=== PATIENT | male | born 1930 | race Caucasian/White ===

== ENCOUNTER 2017-09-10 14:57 | Inpatient (IN) | payer MEDICARE, OTHER ==
[~2017-09-10] VITALS: Ht 167.6 cm; Wt 77.1 kg
[~2017-09-10 14:57] MED LIST: CARB-35 PO; CARBIDOPA-LEVODOPA PO; ERGO2000 PO; FOLI1TAB16 PO; LUPRON DEPOT; MIRT15TA7 PO; MULT1TAB69 PO; POLY17PO3 PO; RISE35TA8 PO; ROPI0.5T2 PO; ROPI1TAB4 PO; SOLI10TA2 PO; TRAM50TA2 PO; VITAMIN D2 PO
--- NOTE | 2017-09-10 15:30 | NUR ---
DR TOURE AT BEDSIDE FOR EVAL SALINE LOCK PLACED. SEPTIC WORKUP INITIATED. IV FLUIDS VIA LT HAND. BLOOD DRAWN FOR LAB WORK AND CUTURES. ANEDRS CATH INSERTED - URINE SPECIMEN OBTAINED.
--- NOTE | 2017-09-10 15:30 | NUR ---
ANTIBIOTICS INITIATED PER MD ORDERS.
[2017-09-10] MEDS ORDERED: FURO-152 PO (15:34)
[2017-09-10] MEDS ORDERED: BICA50TA2 PO (15:34)
[2017-09-10] MEDS ORDERED: ACET-53 PO (15:34)
[2017-09-10] MEDS ORDERED: MIRA50TA PO (15:34)
[2017-09-10] MEDS ORDERED: PRAM0.253 PO (15:34)
[2017-09-10] MEDS ORDERED: IV NORMAL SALINE 1000 ML BAG IV ONE (15:45)
[2017-09-10] MEDS ORDERED: VANCOMYCIN IV 1,000 MG in IV DEXTROSE 5% 250 ML IV ONE (15:45)
[2017-09-10] MEDS ORDERED: GENTAMICIN SULFATE INJ 80 MG in IV DEXTROSE 5% 100 ML IV ONE (15:45)
[2017-09-10] MEDS ORDERED: PIPERACILLIN SODIUM/TAZOBACTAM 3.375 G in IV DEXTROSE 5% 50 ML IV ONE (15:45)
[2017-09-10 16:08] LABS: BASOPHILS % (AUTO) 0.3 % (0.0-2.0); EOSINOPHILS % (AUTO) 0.1 % (0.0-7.0); HEMATOCRIT 36.5 % (36.7-47.1); HEMOGLOBIN 12.3 g/dL (12.5-16.3); LYMPHOCYTES # (AUTO) 0.2 K/uL (20.0-40.0); LYMPHOCYTES % (AUTO) 1.7 % (20.5-51.5); MEAN CORPUSCULAR HEMOGLOBIN 29.1 uug (23.8-33.4); MEAN CORPUSCULAR HGB CONC 34 g/dL (32.5-36.3); MEAN CORPUSCULAR VOLUME 86.5 fL (73.0-96.2); MONOCYTES # (AUTO) 0.3 K/uL (2.0-10.0); MONOCYTES % (AUTO) 3.7 % (0.0-11.0); NEUTROPHILS # (AUTO) 8.6 K/uL (1.8-8.9); NEUTROPHILS % (AUTO) 94.2 % (38.5-71.5); PLATELET COUNT (AUTO) 119 K/uL (152-348); RED BLOOD CELL COUNT(AUTO) 4.22 MIL/uL (4.06-5.63); WHITE BLOOD COUNT (AUTO) 9.1 K/uL (3.6-10.2)
[2017-09-10 16:15] LABS: CARBON DIOXIDE 25 mmol/L (21-32); CHLORIDE 104 mmol/L (98-107); CREATININE 1.2 mg/dL (0.6-1.3); GLUCOSE 147 mg/dL (74-106); POTASSIUM 3.8 mmol/L (3.5-5.1); UREA NITROGEN, BLOOD 29 mg/dL (7-18)
[2017-09-10 16:28] LABS: ALANINE AMINOTRANSFERASE 7 U/L (16-63); ALKALINE PHOSPHATASE 64 U/L (50-136); ASPARTATE AMINOTRANSFERASE 17 U/L (15-37); BILIRUBIN,DIRECT 0.1 mg/dL (0.0-0.2); BILIRUBIN,TOTAL 0.6 mg/dL (0.2-1.0); TOTAL PROTEIN, SERUM 7.3 g/dL (6.4-8.2)
[2017-09-10] MEDS ORDERED: GENTAMICIN SULFATE 80 MG/2 ML VIAL ONE (16:44)
[2017-09-10] MEDS ORDERED: PIPERACILLIN/TAZOBACTAM/D5W 50 ML IV ONE (16:44)
[2017-09-10] MEDS ORDERED: VANCOMYCIN IV 200 ML ONE (16:46)
[2017-09-10 16:59] LABS: *BILIRUBIN,URIN NEGATIVE (NEGATIVE); *BLOOD, URINE 1+ (NEGATIVE); *CLARITY,URINE SLIGHTLY CLOUDY (CLEAR); *KETONES,URINE NEGATIVE (NEGATIVE); *PROTEIN,URINE 1+ (NEGATIVE); *UROBILINOGEN,URINE 0.2 E.U./dl (NORMAL); LEUKOCYTE ESTERASE ,URINE NEGATIVE (NEGATIVE); NITRITE, URINE NEGATIVE (NEGATIVE); UGLUCOSE NEGATIVE (NEGATIVE)
[2017-09-10 17:16] LABS: *COLOR,URINE YELLOW (YELLOW)
[2017-09-10 17:18] LABS: URINE AMORPHOUS URATE MANY /HPF; WBC,URINE 0-3 /HPF (0-3)
[2017-09-10] MEDS ORDERED: ACETAMINOPHEN 325 MG TABLET PO ONE (18:45)
--- NOTE | 2017-09-10 19:00 | NUR ---
STILL AWAITINF FOR BED ASSIGNMENT FROM TELEMETRY FLOOR.
[2017-09-10] MEDS ORDERED: ACETAMINOPHEN ES 500 MG TABLET ONE (19:09)
--- NOTE | 2017-09-10 19:25 | NUR ---
Laura dominique in EDM - 09/10/17 at 1926 by PIYUSH ANTIBIOTICS INITIATED PER MD BLACKWELL.
--- NOTE | 2017-09-10 19:28 | NUR ---
REPORT GIVEN TO SAE MARISCAL.
--- NOTE | 2017-09-10 20:58 | NUR ---
Pt. admitted to TELE , under care of Dr. LOPEZ [place] List completed.
--- NOTE | 2017-09-10 21:22 | NUR ---
PEROT GIVEN TO MANSOOR ASH. PATIENT ASSIGNED TO ROOM 219
--- NOTE | 2017-09-10 21:56 | NUR ---
PATIENT IS BEING TRANSPORTED BY [facility].
--- NOTE | 2017-09-10 22:00 | NUR ---
RECEIVED PATIENT VIA GURNEY FROM ER. PATIENT IS A/O X3. FARSI SPEAKING. CAREGIVER AT BEDSIDE. PATIENT DENIES PAIN OR DISCOMFORT. NO RESP. DISTRESS NOTED. ON O2 2L NC SATING 98%. PLACED ON TELE ORDERED, SR 68. H/L NOTED TO BILATERAL HANDS, BOTH #20 GAUGE, INTACT AND PATENT. F/C INTACT AND PATENT, DRAINING CLEAR, YELLOW URINE. CALL LIGHT IN REACH. ALL NEEDS ATTENDED. ORIENTED PATIENT TO ROOM AND CALL LIGHT. CALL LIGHT IN REACH. ALL NEEDS ATTENDED. WILL CONTINUE TO MONITOR AND ASSESS.
--- NOTE | 2017-09-10 22:10 | NUR ---
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
--- NOTE | 2017-09-10 22:15 | NUR ---
PATIENTS TEMPERATURE CHECKED AXILLARY, 100.0 = 101.[address] LOPEZ FOR FURTHER ORDERS. ALL NEEDS ATTENDED.
[2017-09-10 22:26] VITALS: BP 115/45
[2017-09-10] MEDS ORDERED: ACETAMINOPHEN 325 MG TABLET ONE (22:53)
[2017-09-10] MEDS: ACETAMINOPHEN 325 MG TABLET PO PRN (22:59)
[2017-09-10] MEDS ORDERED: TRAMADOL HCL 50 MG TABLET PO PRN (23:00)
--- NOTE | 2017-09-10 23:00 | NUR ---
PATIENT GIVEN TYLENOL 650MG PO PRN FOR TEMP. WILL CONTINUE TO MONITOR.
[2017-09-11] VITALS: BP 113/40
--- NOTE | 2017-09-11 01:00 | NUR ---
AFEBRILE. PATIENTS TEMPERATURE 98.8.
[2017-09-11 04:00] VITALS: BP 107/35
[2017-09-11] MEDS ORDERED: Z GUARD REMEDY PASTE 57 GM TUBE TOP PRN ×2 (05:15→09:30)
--- NOTE | 2017-09-11 06:40 | NUR ---
PATIENT ASLEEP. AFEBRILE. VSS. 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 NO S/S OF PAIN OR DISCOMFORT. NO RESP. DISTRESS NOTED. BED ALARM ON. CALL LIGHT IN REACH. ALL NEEDS ATTENDED. WILL CONTINUE TO MONITOR.
--- NOTE | 2017-09-11 07:30 | NUR ---
Sleeping, comfortable. O2 at 2L/NC. Tele SR, BBB, PAC
[2017-09-11] MEDS: MIRALAX 17 GM POWD.PACK PO SCH (09:00)
--- NOTE | 2017-09-11 09:00 | NUR ---
Febrile 102. 3, cooling measures given. Tylenol po given. Dr. Pretty and Ileana Reis DOCUMENT SCANNER informed
[2017-09-11 09:03] VITALS: BP 116/33
[2017-09-11] MEDS: SOLIFENACIN SUCCINATE 5 MG TABEC PO SCH (10:05)
[2017-09-11] MEDS: FOLIC ACID 1 MG TABLET PO SCH (10:06)
[2017-09-11] MEDS: CARBIDOPA/LEVODOPA 25-100MG TAB.RAPDIS PO SCH ×4 (10:06→22:28)
[2017-09-11] MEDS: BICALUTAMIDE 50 MG TABLET PO SCH (10:08)
[2017-09-11] MEDS: ACETAMINOPHEN 325 MG TABLET PO PRN ×2 (10:09→22:27)
[2017-09-11] MEDS ORDERED: PIPERACILLIN/TAZOBACTAM/D5W 50 ML IV SCH (10:30)
[2017-09-11] MEDS: IV NS 1000 ML 1,000 ML IV PRN (11:28)
[2017-09-11] MEDS: PIPERACILLIN/TAZOBACTAM/D5W 50 ML IV SCH ×3 (11:28→17:39)
[2017-09-11 11:39] LABS: ALANINE AMINOTRANSFERASE 10 U/L (16-63); ALKALINE PHOSPHATASE 50 U/L (50-136); ASPARTATE AMINOTRANSFERASE 21 U/L (15-37); BILIRUBIN,TOTAL 0.4 mg/dL (0.2-1.0); CARBON DIOXIDE 25 mmol/L (21-32); CHLORIDE 109 mmol/L (98-107); CREATININE 1.3 mg/dL (0.6-1.3); GLUCOSE 115 mg/dL (74-106); POTASSIUM 3.7 mmol/L (3.5-5.1); TOTAL PROTEIN, SERUM 6.4 g/dL (6.4-8.2); UREA NITROGEN, BLOOD 31 mg/dL (7-18)
[2017-09-11 11:45] VITALS: BP 104/41
[2017-09-11 11:54] LABS: BASOPHILS % (AUTO) 0.2 % (0.0-2.0); EOSINOPHILS % (AUTO) 0.1 % (0.0-7.0); HEMATOCRIT 33.3 % (36.7-47.1); HEMOGLOBIN 10.8 g/dL (12.5-16.3); LYMPHOCYTES # (AUTO) 0.3 K/uL (20.0-40.0); LYMPHOCYTES % (AUTO) 4.2 % (20.5-51.5); MEAN CORPUSCULAR HEMOGLOBIN 28.4 uug (23.8-33.4); MEAN CORPUSCULAR HGB CONC 33 g/dL (32.5-36.3); MEAN CORPUSCULAR VOLUME 87.4 fL (73.0-96.2); MONOCYTES # (AUTO) 0.4 K/uL (2.0-10.0); MONOCYTES % (AUTO) 5.7 % (0.0-11.0); NEUTROPHILS # (AUTO) 5.9 K/uL (1.8-8.9); NEUTROPHILS % (AUTO) 89.8 % (38.5-71.5); RED BLOOD CELL COUNT(AUTO) 3.81 MIL/uL (4.06-5.63); WHITE BLOOD COUNT (AUTO) 6.6 K/uL (3.6-10.2)
--- NOTE | 2017-09-11 12:00 | NUR ---
IVF and Zosyn started as ordered, infusing
[2017-09-11 12:43] LABS: PLATELET COUNT (AUTO) 130 K/uL (152-348)
--- NOTE | 2017-09-11 13:00 | NUR ---
Flu A/B specimen followed up, not collected in ER. Collected and sent to lab
[2017-09-11] MEDS: OSELTAMIVIR PHOSPHATE 75 MG CAPSULE PO SCH ×2 (13:16→22:27)
--- NOTE | 2017-09-11 14:07 | NUR ---
PHARMACY CLINICAL NOTES: VANCOMYCIN DOSING S: 87 YO MALE WITH MULTIPLE MEDICAL PROBLEMS WAS ADMITTED DUE TO ELEVATED TEMP O: BUN/SCR 29/1.2 WBC 9.1, TEMP 102.1 A/P: PT received vancomycin 1000 mg x 1 on 09/10 @ 1911. Due to advanced age and compromised renal fxn will dose vanco by fall of the level. Will administer another dose of Vanco 1250 mg IVPB x 1 . Will order a level for tomorrow @ 1430 and administer/ adjust dose accordingly. RX will continue to follow.
[2017-09-11] MEDS ORDERED: VANCOMYCIN IV 1,250 MG in IV DEXTROSE 5% 500 ML IV ONE (15:00)
[2017-09-11 15:53] VITALS: BP 126/48
--- NOTE | 2017-09-11 18:06 | NUR ---
Diet changed to pureed with aspiration precaution. IVF infusing. Droplet precaution enforced.
--- NOTE | 2017-09-11 19:40 | NUR ---
PT RECEIVED IN BED, AWAKE. A/OX1. CONFUSED. SPEECH UNCLEAR. V/S STABLE. IN ACUTE DISTRESS. NO S/S OF PAIN AT THIS TIME. ON 2L NC, TOLERATING WELL. PT SEEN WITH FEVER 100.9F, COOLING MEASURES INITIATED. WILL ADMIN TYLENOL ORDERED. IVF INFUSING. ANDERS INTACT AND PATENT. HOB ELEVATED. DROPLET PRECAUTIONS IN PLACE. SAFETY MEASURES IMPLEMENTED. CALL LIGHT WITHIN REACH.
[2017-09-11 20:00] VITALS: BP 144/57
[2017-09-11] MEDS: ropiniROLE 1 MG TABLET PO SCH (22:27)
[2017-09-11] MEDS: MIRTAZAPINE 15 MG TABLET PO SCH (22:28)
[2017-09-12 04:00] VITALS: BP 157/54
[2017-09-12] MEDS: PANTOPRAZOLE SODIUM 40 MG TABLET.DR PO SCH (06:44)
--- NOTE | 2017-09-12 06:46 | NUR ---
NON-ADMIN PROTONIX . UNABLE TO CRUSH
--- NOTE | 2017-09-12 07:28 | NUR ---
END OF SHIFT NOTES. PT SLEPT INTERMITTENTLY THROUGHOUT SHIFT. IN STABLE CONDITION. IVF INFUSING. IV ABX INFUSED. ON 2L NC, TOLERATING WELL. PT REQUIRED DEEP SUCTIONING, SEEN WITH THICK YELLOW MUCUS. HEARD WITH BACK OF THE THROAT GURGLING. HOB ELEVATED FOR ASPIRATION PRECAUTIONS. ANDERS INTACT AND PATENT. ALL NEEDS ATTENDED. SAFETY MAINTAINED. CALL LIGHT WITHIN REACH.
--- NOTE | 2017-09-12 08:00 | NUR ---
AWAKE COOPERATE ORTX1 NO SOB OR PAIN ON FALL/ASPIRATION PRECAUTION BED ALARM ON AND CALL LIGHT IN REACH
[2017-09-12 08:06] LABS: ALKALINE PHOSPHATASE 46 U/L (50-136); ASPARTATE AMINOTRANSFERASE 27 U/L (15-37); BILIRUBIN,TOTAL 0.3 mg/dL (0.2-1.0); CARBON DIOXIDE 29 mmol/L (21-32); CHLORIDE 109 mmol/L (98-107); CHOLESTEROL 126 mg/dL (<200); CREATININE 1.2 mg/dL (0.6-1.3); GLUCOSE 90 mg/dL (74-106); HDL CHOLESTEROL 61 mg/dL (40-60); POTASSIUM 3.8 mmol/L (3.5-5.1); TOTAL PROTEIN, SERUM 6.2 g/dL (6.4-8.2); TRIGLYCERIDES 72 MG/DL (30-150); UREA NITROGEN, BLOOD 27 mg/dL (7-18)
[2017-09-12 08:31] LABS: ALANINE AMINOTRANSFERASE 9 U/L (16-63)
[2017-09-12 08:32] LABS: EOSINOPHILS % (AUTO) 0.4 % (0.0-7.0); LYMPHOCYTES # (AUTO) 0.8 K/uL (20.0-40.0); MONOCYTES # (AUTO) 0.5 K/uL (2.0-10.0)
[2017-09-12] MEDS: FOLIC ACID 1 MG TABLET PO SCH (08:33)
[2017-09-12] MEDS: ACETAMINOPHEN 325 MG TABLET PO PRN (08:33)
[2017-09-12] MEDS: SOLIFENACIN SUCCINATE 5 MG TABEC PO SCH (08:33)
[2017-09-12] MEDS: OSELTAMIVIR PHOSPHATE 75 MG CAPSULE PO SCH ×2 (08:33→20:47)
[2017-09-12] MEDS: CARBIDOPA/LEVODOPA 25-100MG TAB.RAPDIS PO SCH ×4 (08:34→20:49)
[2017-09-12] MEDS: BICALUTAMIDE 50 MG TABLET PO SCH (08:35)
[2017-09-12] MEDS: MIRALAX 17 GM POWD.PACK PO SCH (08:40)
[2017-09-12 08:45] LABS: BASOPHILS % (AUTO) 0.6 % (0.0-2.0); HEMATOCRIT 35.6 % (36.7-47.1); HEMOGLOBIN 11.7 g/dL (12.5-16.3); LYMPHOCYTES % (AUTO) 14.4 % (20.5-51.5); MEAN CORPUSCULAR HGB CONC 33 g/dL (32.5-36.3); MONOCYTES % (AUTO) 8.7 % (0.0-11.0); NEUTROPHILS # (AUTO) 4.5 K/uL (1.8-8.9); NEUTROPHILS % (AUTO) 75.9 % (38.5-71.5); RED BLOOD CELL COUNT(AUTO) 4.04 MIL/uL (4.06-5.63); WHITE BLOOD COUNT (AUTO) 5.9 K/uL (3.6-10.2)
[2017-09-12 08:51] LABS: PLATELET COUNT (AUTO) 91 K/uL (152-348)
[2017-09-12 09:31] LABS: IRON, SERUM 15 ug/dL (50-175)
[2017-09-12 11:05] VITALS: BP 114/48
[2017-09-12] MEDS: IV NS 1000 ML 1,000 ML IV PRN (11:08)
[2017-09-12] MEDS: FERROUS SULFATE 325 MG TABEC PO SCH (11:09)
[2017-09-12 11:29] LABS: *OCCULT BLOOD STOOL NEGATIVE (NEGATIVE)
[2017-09-12 12:17] LABS: BAND % (MANUAL) 1 % (0-10); EOSINOPHILS % (MANUAL) 1 % (0-8); LYMPHOCYTES % (MANUAL) 13 % (20-40); MONOCYTES % (MANUAL) 12 % (2-10); NEUTROPHILS % (MANUAL) 73 % (42-75)
--- NOTE | 2017-09-12 13:00 | NUR ---
EAT LUNCH WELL 100 % PO FLD TIFFANY WELL SUCTION MOUTH PRN SMALL THICK MUCOUS WITH SOME OLD BLOOD POSS FROM DEEP SUCTION LAST NIGHT CLOSED OBSERVATION FAMILY AT BEDSIDE MOUTH CARE AND MOISTURE TO LIP
--- NOTE | 2017-09-12 13:09 | NUR ---
WOUND CARE CONSULT: PT PRESENTS WITH INCONTINENCE AND BRUISING WITH DRY ABRASION TO MIDBACK, PRESENT ON ADMISSION. ALL SKIN PROTECTION MEASURES IN PLACE INCLUDING FIRST STEP MATTRESS. DISCUSSED WITH NURSING STAFF. WILL SEE PRN. BERG IN AGREEMENT WITH PLAN OF CARE. Addendum: 09/12/17 at 1311 by MICKIE BALBUENA RN Amended: Links added.
[2017-09-12] MEDS ORDERED: ALBUTEROL SULFATE 2.5 MG/3 ML NEBU NEB PRN (13:15)
[2017-09-12] MEDS ORDERED: IPRATROPIUM BROMIDE 0.5 MG/2.5 ML NEBU NEB PRN (13:15)
[2017-09-12] MEDS: ALBUTEROL SULFATE 2.5 MG/3 ML NEBU NEB SCH ×4 (13:15→22:43)
[2017-09-12] MEDS: IPRATROPIUM BROMIDE 0.5 MG/2.5 ML NEBU NEB SCH ×4 (13:15→22:43)
[2017-09-12] MEDS ORDERED: GUAIFENESIN/DEXTROMETHORPHAN 5 ML UDC PO PRN (13:15)
--- NOTE | 2017-09-12 13:30 | NUR ---
NOT AWARE OF ORDER AT THIS TIME . WILL RESUME Q4 TX .
[2017-09-12 15:14] VITALS: BP_SYST 114; BP_SYST 126; BP_DIAS 46; BP_DIAS 48
--- NOTE | 2017-09-12 17:30 | NUR ---
STABLE CONDITION NO ACUTE DISTRESS PAIN UNDER CONTROL SAFETY MEASURE PROVIDED BED ALARM ON AND CALL LIGHT IN REACH
[2017-09-12 19:00] VITALS: BP 136/50
--- NOTE | 2017-09-12 19:45 | NUR ---
RECEIVED IN BED AWAKE BUT FORGETFUL, REMAIN IN DROPLET PRECAUTION, WITH SLIGHT PRODUCTIVE COUGH NOTED, CONT HHNTX FOR COUGH AND CONGESTION, OXYGEN SAT WNL CONT 3LITER NC, KEPT CLEAN AND DRY, NO SOB NO CHEST PAIN NOTED,ANDERS CATH PATENT DRAINING WITH YELLOW COLOR URINE IN MODERATE AMOUNT CONT TO MONITOR.
[2017-09-12] MEDS: ropiniROLE 1 MG TABLET PO SCH (20:47)
[2017-09-12] MEDS: MIRTAZAPINE 15 MG TABLET PO SCH (20:47)
[2017-09-12 21:00] VITALS: BP 136/50
[2017-09-13] MEDS: IPRATROPIUM BROMIDE 0.5 MG/2.5 ML NEBU NEB SCH ×6 (02:35→23:08)
[2017-09-13] MEDS: ALBUTEROL SULFATE 2.5 MG/3 ML NEBU NEB SCH ×6 (02:35→23:08)
[2017-09-13 04:00] VITALS: BP 130/46
--- NOTE | 2017-09-13 05:25 | NUR ---
PATIENT AWAKE HOB ELEVATED, NO SOB NO CHEST PAIN, ANDERS CATH PATENT DRAINING WITH YELLOW SAHARA URINE IN MODERATE AMOUNT, DRESSING INTACT ON SACRAL REDNESS, TURN AND REPOSITION. CONT OXYGEN 3LITER NC FOR ASSIST, OXYGEN SAT WNL, NO S/S OF PAIN, TURN AND REPOSITION EVERY TWO HOURS, REMAIN DROPLET PRECAUTION, RENDERED GOOD ORAL CARE, CONT TO MONITOR.
[2017-09-13] MEDS: PANTOPRAZOLE SODIUM 40 MG TABLET.DR PO SCH (06:31)
--- NOTE | 2017-09-13 07:10 | NUR ---
RECEIVED REPORT FROM DIRECTOR CLINICAL INFORMATION SERVICES NURSE, PATIENT IN BED AWAKE, NO EVIDENCE OF DISTRESS NTOED, BED IN LOW POSITION, SIDE RAILS UP X2. PATIENT BEING CHANGED AND REPOSITIONED AT THIS TIME.
[2017-09-13 08:08] LABS: BASOPHILS % (AUTO) 0.5 % (0.0-2.0); EOSINOPHILS % (AUTO) 0.6 % (0.0-7.0); HEMATOCRIT 34.6 % (36.7-47.1); HEMOGLOBIN 11.4 g/dL (12.5-16.3); LYMPHOCYTES % (AUTO) 22.5 % (20.5-51.5); MEAN CORPUSCULAR HEMOGLOBIN 28.5 uug (23.8-33.4); MEAN CORPUSCULAR HGB CONC 33 g/dL (32.5-36.3); MEAN CORPUSCULAR VOLUME 86.7 fL (73.0-96.2); MONOCYTES # (AUTO) 0.4 K/uL (2.0-10.0); MONOCYTES % (AUTO) 9.9 % (0.0-11.0); NEUTROPHILS # (AUTO) 2.8 K/uL (1.8-8.9); NEUTROPHILS % (AUTO) 66.5 % (38.5-71.5); PLATELET COUNT (AUTO) 104 K/uL (152-348); RED BLOOD CELL COUNT(AUTO) 3.99 MIL/uL (4.06-5.63)
[2017-09-13 08:25] LABS: ALKALINE PHOSPHATASE 45 U/L (50-136); ASPARTATE AMINOTRANSFERASE 27 U/L (15-37); BILIRUBIN,TOTAL 0.3 mg/dL (0.2-1.0); CARBON DIOXIDE 28 mmol/L (21-32); CHLORIDE 110 mmol/L (98-107); CREATININE 0.9 mg/dL (0.6-1.3); GLUCOSE 90 mg/dL (74-106); MAGNESIUM 1.9 mg/dL (1.8-2.4); PHOSPHOROUS 3.1 mg/dL (2.5-4.9); POTASSIUM 3.9 mmol/L (3.5-5.1); TOTAL PROTEIN, SERUM 6.2 g/dL (6.4-8.2); UREA NITROGEN, BLOOD 18 mg/dL (7-18)
[2017-09-13 08:46] LABS: ALANINE AMINOTRANSFERASE 9 U/L (16-63)
[2017-09-13 09:00] LABS: WHITE BLOOD COUNT (AUTO) 4.3 K/uL (3.6-10.2)
[2017-09-13] MEDS: BICALUTAMIDE 50 MG TABLET PO SCH (09:43)
[2017-09-13] MEDS: MIRALAX 17 GM POWD.PACK PO SCH (09:44)
[2017-09-13] MEDS: FOLIC ACID 1 MG TABLET PO SCH (09:44)
[2017-09-13] MEDS: OSELTAMIVIR PHOSPHATE 75 MG CAPSULE PO SCH ×2 (09:44→21:11)
[2017-09-13] MEDS: CARBIDOPA/LEVODOPA 25-100MG TAB.RAPDIS PO SCH (09:45)
[2017-09-13] MEDS: SOLIFENACIN SUCCINATE 5 MG TABEC PO SCH (09:45)
[2017-09-13 11:02] VITALS: BP 148/55
[2017-09-13] MEDS: FERROUS SULFATE 325 MG TABEC PO SCH (12:14)
[2017-09-13] MEDS: PRAMIPEXOLE 0.25 MG TABLET PO SCH ×2 (13:43→17:59)
[2017-09-13] MEDS: CARBIDOPA/LEVODOPA 25-100MG TABLET PO SCH ×3 (14:20→21:11)
[2017-09-13 15:00] VITALS: BP 138/64
--- NOTE | 2017-09-13 19:05 | NUR ---
PATIENT IS CURRENTLY IN BED, NO EVIDENCE OF DISTRESS NOTED. FAMILY AT THE BEDSIDE, TOLERATED MEALS WELL, NO ASPIRATION. ALL NEEDS MET.
[2017-09-13 20:00] VITALS: BP 119/40
--- NOTE | 2017-09-13 20:00 | NUR ---
PATIENT ASLEEP IN BED. EASILY AROUSABLE. NO S/S OF PAIN OR DISCOMFORT. NO FACIAL GRIMACE. NO RESP. DISTRESS NOTED. IVF INFUSING WELL TO RIGHT HAND. ON ISOLATION FOR DROPLET PRECAUTIONS. VSS. CALL LIGHT IN REACH. ALL NEEDS ATTENDED. WILL CONTINUE TO MONITOR.
[2017-09-13] MEDS: MIRTAZAPINE 15 MG TABLET PO SCH (21:11)
[2017-09-14] MEDS: IV NS 1000 ML 1,000 ML IV PRN ×2 (02:02→21:10)
[2017-09-14] MEDS ORDERED: IPRATROPIUM BROMIDE 0.5 MG/2.5 ML NEBU ONE (02:12)
[2017-09-14] MEDS: IPRATROPIUM BROMIDE 0.5 MG/2.5 ML NEBU NEB SCH ×6 (03:37→22:55)
[2017-09-14] MEDS: ALBUTEROL SULFATE 2.5 MG/3 ML NEBU NEB SCH ×6 (03:37→22:55)
[2017-09-14 04:00] VITALS: BP 143/50
--- NOTE | 2017-09-14 06:11 | NUR ---
PATIENT ASLEEP IN BED. EASILY AROUSABLE. CRANE SERVICE TECHNICIAN REPORTED THAT PATIENT IS REFUSING FOR BLOOD DRAW. HAND COMPOSITOR NOTIFIED. CRANE SERVICE TECHNICIAN WILL RE-TRY LATER.
[2017-09-14] MEDS: PANTOPRAZOLE SODIUM 40 MG TABLET.DR PO SCH (06:16)
--- NOTE | 2017-09-14 07:20 | NUR ---
RECEIVED REPORT FROM SCHOOL OPERATIONS MANAGER NURSE, PATIENT IN BED AWAKE, NO EVIDENCE OF DISTRESS NOTED, BED IN LOW POSITION, SIDE RAILS UP X2.
[2017-09-14] MEDS: FOLIC ACID 1 MG TABLET PO SCH (08:07)
[2017-09-14] MEDS: MIRALAX 17 GM POWD.PACK PO SCH (08:07)
[2017-09-14] MEDS: CARBIDOPA/LEVODOPA 25-100MG TABLET PO SCH ×4 (08:07→21:08)
[2017-09-14] MEDS: SOLIFENACIN SUCCINATE 5 MG TABEC PO SCH (08:07)
[2017-09-14] MEDS: PRAMIPEXOLE 0.25 MG TABLET PO SCH ×3 (08:07→17:28)
[2017-09-14] MEDS: BICALUTAMIDE 50 MG TABLET PO SCH (08:08)
[2017-09-14] MEDS: OSELTAMIVIR PHOSPHATE 75 MG CAPSULE PO SCH ×2 (08:09→21:08)
[2017-09-14 10:18] LABS: BASOPHILS % (AUTO) 0.4 % (0.0-2.0); EOSINOPHILS # (AUTO) 0.1 K/uL (0.0-0.7); EOSINOPHILS % (AUTO) 1.6 % (0.0-7.0); HEMATOCRIT 31.6 % (36.7-47.1); HEMOGLOBIN 10.7 g/dL (12.5-16.3); LYMPHOCYTES # (AUTO) 0.9 K/uL (20.0-40.0); LYMPHOCYTES % (AUTO) 17.8 % (20.5-51.5); MEAN CORPUSCULAR HEMOGLOBIN 29.2 uug (23.8-33.4); MEAN CORPUSCULAR HGB CONC 34 g/dL (32.5-36.3); MEAN CORPUSCULAR VOLUME 86.6 fL (73.0-96.2); MONOCYTES # (AUTO) 0.4 K/uL (2.0-10.0); MONOCYTES % (AUTO) 8.7 % (0.0-11.0); NEUTROPHILS # (AUTO) 3.6 K/uL (1.8-8.9); NEUTROPHILS % (AUTO) 71.5 % (38.5-71.5); PLATELET COUNT (AUTO) 93 K/uL (152-348); RED BLOOD CELL COUNT(AUTO) 3.65 MIL/uL (4.06-5.63); WHITE BLOOD COUNT (AUTO) 5.1 K/uL (3.6-10.2)
[2017-09-14 10:25] LABS: ALKALINE PHOSPHATASE 43 U/L (50-136); ASPARTATE AMINOTRANSFERASE 20 U/L (15-37); BILIRUBIN,TOTAL 0.3 mg/dL (0.2-1.0); CHLORIDE 111 mmol/L (98-107); GLUCOSE 128 mg/dL (74-106); MAGNESIUM 1.7 mg/dL (1.8-2.4); PHOSPHOROUS 3.3 mg/dL (2.5-4.9); POTASSIUM 3.7 mmol/L (3.5-5.1); TOTAL PROTEIN, SERUM 5.9 g/dL (6.4-8.2); UREA NITROGEN, BLOOD 17 mg/dL (7-18)
[2017-09-14 10:47] LABS: ALANINE AMINOTRANSFERASE 8 U/L (16-63); CARBON DIOXIDE 27 mmol/L (21-32)
[2017-09-14 11:37] VITALS: BP 120/44
[2017-09-14] MEDS: FERROUS SULFATE 325 MG TABEC PO SCH (13:40)
[2017-09-14 14:25] LABS: BAND % (MANUAL) 2 % (0-10); EOSINOPHILS % (MANUAL) 3 % (0-8); LYMPHOCYTES % (MANUAL) 17 % (20-40); MONOCYTES % (MANUAL) 5 % (2-10); NEUTROPHILS % (MANUAL) 73 % (42-75)
[2017-09-14 15:44] VITALS: BP 153/57
--- NOTE | 2017-09-14 18:44 | NUR ---
isak was compliant with care today. Addendum: 09/14/17 at 1845 by SCARLETT JOLLEY RN Currently in bed, no evidence of distress noted, bed in low position, side rails up x2.
[2017-09-14 19:00] VITALS: BP 128/58
--- NOTE | 2017-09-14 19:45 | NUR ---
PT RECEIVED IN BED, AWAKE. A/OX1. CONFUSED. V/S STABLE. IN NO ACUTE DISTRESS. NO S/S OF PAIN NOTED. ON 3LNC, TOLERATING WELL. AFEBRILE. IVF INFUSING. ANDERS INTACT AND PATENT. ON FIRST STEP MATTRESS. HOB ELEVATED. DROPLET PRECAUTIONS IN PLACE. SAFETY MEASURES IMPLEMENTED. CALL LIGHT WITHIN REACH.
[2017-09-14] MEDS: MIRTAZAPINE 15 MG TABLET PO SCH (21:08)
[2017-09-15] MEDS: ALBUTEROL SULFATE 2.5 MG/3 ML NEBU NEB SCH ×6 (03:08→22:57)
[2017-09-15] MEDS: IPRATROPIUM BROMIDE 0.5 MG/2.5 ML NEBU NEB SCH ×6 (03:08→22:57)
[2017-09-15 03:46] VITALS: BP 118/50
--- NOTE | 2017-09-15 06:00 | NUR ---
NO ADMIN PROTONIX. UNABLE TO CRUSH
[2017-09-15] MEDS: PANTOPRAZOLE SODIUM 40 MG TABLET.DR PO SCH (06:03)
--- NOTE | 2017-09-15 06:43 | NUR ---
END OF SHIFT NOTES. PT SLEPT WELL THROUGHOUT SHIFT. IN STABLE CONDITION. IVF INFUSING. ON 3L NC. DROPLET PRECAUTIONS MAINTAINED. ANDERS INTACT AND PATENT. ON FIRST STEP MATTRESS WITH HOB ELEVATED THROUGHOUT SHIFT. ALL NEEDS ATTENDED. SAFETY MAINTAINED. CALL LIGHT WITHIN REACH.
--- NOTE | 2017-09-15 07:05 | NUR ---
RECEIVED REPORT FROM WASTEWATER TREATMENT OPERATOR NURSE, PATIENT IN BED ASLEE, NO EVIDENCE OF DISTRESS NOTED AT THIS TIME, BED IN LOW POSITION, SIDE RAILS UP X2.
[2017-09-15] MEDS: PRAMIPEXOLE 0.25 MG TABLET PO SCH ×3 (09:00→17:22)
[2017-09-15] MEDS: CARBIDOPA/LEVODOPA 25-100MG TABLET PO SCH ×4 (09:01→22:03)
[2017-09-15] MEDS: FOLIC ACID 1 MG TABLET PO SCH (09:01)
[2017-09-15] MEDS: BICALUTAMIDE 50 MG TABLET PO SCH (09:02)
[2017-09-15] MEDS: MIRALAX 17 GM POWD.PACK PO SCH (09:02)
[2017-09-15] MEDS: OSELTAMIVIR PHOSPHATE 75 MG CAPSULE PO SCH ×2 (09:02→22:04)
[2017-09-15] MEDS: SOLIFENACIN SUCCINATE 5 MG TABEC PO SCH (09:03)
[2017-09-15 10:00] VITALS: BP 143/76
[2017-09-15] MEDS: FERROUS SULFATE 325 MG TABEC PO SCH (12:33)
[2017-09-15 15:00] VITALS: BP 128/46
--- NOTE | 2017-09-15 18:45 | NUR ---
PATIENT HAS BEEN COOPERATIVE WITH CARE. NO EVIDENCE OF DISTRESS NOTED AT THIS TIME. BED IN LOW POSITION, SIDE RAILS UP X2. BED ALARM ON.
[2017-09-15 19:30] VITALS: BP 131/58
--- NOTE | 2017-09-15 19:40 | NUR ---
PT RECEIVED IN BED, AWAKE. A/OX1. FARSI SPEAKING, SPEECH UNCLEAR. V/S STABLE. IN NO ACUTE DISTRESS. NO C/O PAIN AT THIS TIME. IVF INFUSING. ON 1LNC, TOLERATING WELL. ANDERS INTACT AND PATENT. PT ON FIRST STEP MATTRESS. HOB ELEVATED. DROPLET PRECAUTIONS IN PLACE. SAFETY MEASURES IMPLEMENTED. CALL LIGHT WITHIN REACH.
[2017-09-15] MEDS: MIRTAZAPINE 15 MG TABLET PO SCH (22:03)
[2017-09-16] MEDS: IPRATROPIUM BROMIDE 0.5 MG/2.5 ML NEBU NEB SCH ×4 (03:29→16:25)
[2017-09-16] MEDS: ALBUTEROL SULFATE 2.5 MG/3 ML NEBU NEB SCH ×4 (03:29→16:25)
[2017-09-16 04:00] VITALS: BP 149/58
[2017-09-16] MEDS: PANTOPRAZOLE SODIUM 40 MG TABLET.DR PO SCH (06:11)
--- NOTE | 2017-09-16 06:15 | NUR ---
UNABLE TO ADMIN PROTONIX. UNABLE TO CRUSH
--- NOTE | 2017-09-16 06:49 | NUR ---
END OF SHIFT NOTES. ALL NEEDS ATTENDED. ISOLATION MAINTAINED. CALL LIGHT WITHIN REACH.
[2017-09-16 07:48] LABS: BASOPHILS % (AUTO) 0.8 % (0.0-2.0); EOSINOPHILS # (AUTO) 0.2 K/uL (0.0-0.7); HEMATOCRIT 31.8 % (36.7-47.1); HEMOGLOBIN 10.7 g/dL (12.5-16.3); LYMPHOCYTES # (AUTO) 1.1 K/uL (20.0-40.0); MEAN CORPUSCULAR HGB CONC 34 g/dL (32.5-36.3); MEAN CORPUSCULAR VOLUME 86.4 fL (73.0-96.2); MONOCYTES # (AUTO) 0.4 K/uL (2.0-10.0); NEUTROPHILS # (AUTO) 3.1 K/uL (1.8-8.9); NEUTROPHILS % (AUTO) 63.2 % (38.5-71.5); PLATELET COUNT (AUTO) 108 K/uL (152-348); RED BLOOD CELL COUNT(AUTO) 3.68 MIL/uL (4.06-5.63)
[2017-09-16 07:54] LABS: CARBON DIOXIDE 31 mmol/L (21-32); CHLORIDE 111 mmol/L (98-107); CREATININE 0.8 mg/dL (0.6-1.3); GLUCOSE 105 mg/dL (74-106); PHOSPHOROUS 3.6 mg/dL (2.5-4.9); UREA NITROGEN, BLOOD 19 mg/dL (7-18)
[2017-09-16 08:00] VITALS: BP 116/56
--- NOTE | 2017-09-16 08:00 | NUR ---
Awake, alert, confused, on moderate high back rest. Room air O2 sat 98%
[2017-09-16] MEDS: PRAMIPEXOLE 0.25 MG TABLET PO SCH ×3 (09:40→18:03)
[2017-09-16] MEDS: CARBIDOPA/LEVODOPA 25-100MG TABLET PO SCH ×3 (09:40→17:15)
[2017-09-16] MEDS: FOLIC ACID 1 MG TABLET PO SCH (09:40)
[2017-09-16] MEDS: MIRALAX 17 GM POWD.PACK PO SCH (09:40)
[2017-09-16] MEDS: OSELTAMIVIR PHOSPHATE 75 MG CAPSULE PO SCH (09:41)
[2017-09-16] MEDS: SOLIFENACIN SUCCINATE 5 MG TABEC PO SCH (09:41)
[2017-09-16] MEDS: BICALUTAMIDE 50 MG TABLET PO SCH (09:42)
[2017-09-16] MEDS: IV NS 1000 ML 1,000 ML IV PRN (09:57)
[2017-09-16 12:05] VITALS: BP 137/65
[2017-09-16] MEDS: FERROUS SULFATE 325 MG TABEC PO SCH (12:18)
[2017-09-16 16:00] VITALS: BP 153/51
--- NOTE | 2017-09-16 19:16 | NUR ---
[facility] Report given to Rosio daughter informed. Saline lock removed. Discharged per gurney/ambulance in fair condition, not in distress, afebrile.
== END 2017-09-16 19:15 | DRG 193 ==
LOC: ER 14:58 → TELE 21:39 → MED 09-11 13:00
PROVIDERS: ADMIT Internal Medicine; ATTEND Internal Medicine
DX: J10.1 Influenza due to other identified influenza virus with other respiratory manifestations (principal); N17.0 Acute kidney failure with tubular necrosis; G93.40 Encephalopathy, unspecified; E44.0 Moderate protein-calorie malnutrition; R13.10 Dysphagia, unspecified; D68.9 Coagulation defect, unspecified; I50.30 Unspecified diastolic (congestive) heart failure; G20 Parkinson's disease; I08.2 Rheumatic disorders of both aortic and tricuspid valves; D69.6 Thrombocytopenia, unspecified; E86.0 Dehydration; F02.80 Dementia in other diseases classified elsewhere, unspecified severity, without behavioral disturbance, psychotic disturbance, mood disturbance, and anxiety; Z85.46 Personal history of malignant neoplasm of prostate; Z68.27 Body mass index [BMI] 27.0-27.9, adult; D50.9 Iron deficiency anemia, unspecified; Z91.81 History of falling; Z74.09 Other reduced mobility; R73.9 Hyperglycemia, unspecified
CPT/HCPCS: 36415; 70030-TC; 71010; 83550; 83605; 83735; 84100; 84443; 85025; 85730; 87040; 87070; 87086; 87400; 93005; 93307; 94640; 97110; 97530; A4663; J1580; J2543; J3370; J3490; J3590; J7030; J7060; J8499